=== PATIENT | male | born 1955 | race Caucasian/White ===

== ENCOUNTER → 2016-10-25 | Outpatient (REF) | payer BC ==
[2016-10-27 00:07] LABS: Lyme Disease IgG/IgM Antibodie <0.91 ISR (0.00-0.90); Lyme Disease IgM Ab Quantitati <0.80 index (0.00-0.79)
== END ==
LOC: M LAB REF 12:18
PROVIDERS: ATTEND Nurse Practitioner Family
DX: Z11.59 Encounter for screening for other viral diseases (principal)

== ENCOUNTER → 2017-05-01 | Outpatient (CLI) | payer BC ==
--- NOTE | 2017-05-02 04:41 | REP ---
Clinical: Wheezing . Comparison: None . Technique: PA and lateral. Findings: The mediastinum and cardiac silhouette are normal. Minimal linear atelectasis based on lateral radiograph cannot be excluded. The lung leon are otherwise clear and without acute consolidation, effusion, or pneumothorax. The skeletal structures are intact and normal. Impression: 1. Minimal linear atelectasis cannot be excluded. No focal consolidation. Signed by Mustapha Smith MD 05/02/2017 04:33 A
== END ==
LOC: M WUC 11:53
PROVIDERS: ATTEND Nurse Practitioner Family
DX: R06.2 Wheezing (principal)

== ENCOUNTER → 2019-05-02 | Outpatient (CLI) | payer BC ==
--- NOTE | 2019-05-02 16:38 | REP ---
MRI RIGHT SHOULDER: TECHNIQUE: Axial T2 fat sat, coronal oblique T1, T2 fat sat, post arthrogram axial T1 fat sat, proton density, coronal oblique T1 fat sat, T2 sat, sagittal oblique T2 fat sat, ABER T1 fat sat. There is ill-defined high signal involving the supraspinatus tendon, infraspinatus tendon and subscapularis tendon compatible with moderate degree of tendinopathy/tendinitis. I cannot exclude some degree of fraying of these tendons. There are moderate hypertrophic degenerative changes of the acromioclavicular joint with mild subchondral marrow edema. The acromion is type 1. The biceps tendon is within the bicipital groove. A large amount of surrounding fluid consistent with tenosynovitis. There is no Hill-Sachs deformity. The deltoid muscle demonstrates no abnormal signal. There is a complex tear of the biceps labral complex. The entire labrum is torn. There is subchondral marrow edema and cystic change throughout the glenoid. Similar findings are seen in a flattened medial humeral head. In addition, there is geographic serpiginous low and high signal in this region of the medial humeral head consistent with avascular necrosis. Large humeral head spur is seen medially and inferiorly. There is a moderate joint effusion. There is severe chondromalacia at the glenohumeral joint. IMPRESSION: Moderate tendinopathy supraspinatus, infraspinatus and subscapularis tendons with suspected fraying of these tendons. Moderate hypertrophic degenerative changes acromioclavicular joint. Significant biceps tenosynovitis. Complex tear of the biceps labral complex with diffuse tear of the entire labrum. 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 Large spur of the humeral head. Moderate joint effusion. Electronically Signed by Sukhwinder Squires MD 05/02/2019 04:58 P
== END ==
LOC: M RAD 12:47
PROVIDERS: ATTEND Orthopaedic Surgery Sports Medicine
DX: M19.011 Primary osteoarthritis, right shoulder (principal)

== ENCOUNTER → 2019-05-27 | Outpatient (CLI) | payer BC ==
[~2019-05-27] MED LIST: AMLO25TA PO; CO Q10CA PO; HYDR12.55 PO
--- NOTE | 2019-05-27 14:55 | REP ---
Clinical: Preoperative assessment. . Comparison: 05/01/2017 . Technique: PA and lateral. Findings: The mediastinum and cardiac silhouette are normal. The lung leon are clear and without acute consolidation, effusion, or pneumothorax. The skeletal structures are intact and normal. Impression: 1. No acute cardiopulmonary process. Electronically Signed by Mustapha Smith MD 05/27/2019 02:47 P
[2019-05-27 14:59] LABS: HEMATOCRIT 47.4 % (42.0-52.0); HEMOGLOBIN 15.6 g/dl (13.5-17.5); MEAN CORPUSCULAR HEMOGLOBIN 29.2 pg (27.0-33.0); MEAN CORPUSCULAR HGB CONC 32.9 g/dl (32.0-36.5); MEAN CORPUSCULAR VOLUME 88.8 fl (80.0-96.0); PLATELET COUNT, AUTOMATED 293 10^3/uL (150-450); RED BLOOD COUNT 5.34 10^6/uL (4.30-6.10); WHITE BLOOD COUNT 7.4 10^3/uL (4.0-10.0)
[2019-05-27 15:11] LABS: INR 1.03; PROTHROMBIN TIME 13.2 SECONDS (11.8-14.0)
[2019-05-27 15:30] LABS: ALT/SGPT 46 U/L (12-78); BILIRUBIN,TOTAL 0.7 MG/DL (0.2-1.0); BLOOD UREA NITROGEN 16 MG/DL (7-18); CALCIUM LEVEL 8.9 MG/DL (8.8-10.2); CARBON DIOXIDE LEVEL 31 MEQ/L (21-32); CHLORIDE LEVEL 101 MEQ/L (98-107); CREATININE FOR GFR 0.95 MG/DL (0.70-1.30); GLOMERULAR FILTRATION RATE > 60.0 (>49); GLUCOSE, FASTING 88 MG/DL (70-100); POTASSIUM SERUM 3.9 MEQ/L (3.5-5.1); SODIUM LEVEL 138 MEQ/L (136-145); TOTAL PROTEIN 7.5 GM/DL (6.4-8.2)
[2019-05-27 15:42] LABS: ERYTHROCYTE SEDIMENTATION RATE 2 mm/hr (0-20)
--- NOTE | 2019-05-28 07:12 | ECGEPIP ---
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
== END ==
LOC: M LAB 13:54
PROVIDERS: ATTEND Orthopaedic Surgery Sports Medicine
DX: Z01.818 Encounter for other preprocedural examination (principal); M19.011 Primary osteoarthritis, right shoulder; I45.10 Unspecified right bundle-branch block

== ENCOUNTER 2019-05-31 05:34 | Inpatient (IN) | payer BC ==
[~2019-05-31] VITALS: Ht 180.3 cm; Wt 79.4 kg
[~2019-05-31 05:34] MED LIST changes: -CO Q10CA PO
[2019-05-31] MEDS ORDERED: LR 1,000 ML IV ONE (06:00)
[2019-05-31] MEDS ORDERED: ceFAZolin SOD 2 GM in IV 1 EA IV ONE (06:00)
[2019-05-31] MEDS ORDERED: CO Q10CA PO (06:16)
[2019-05-31] MEDS ORDERED: BUPIVACAINE HCL 0.25% 30 ML VIAL As Ordered ONE (06:44)
[2019-05-31] MEDS ORDERED: fentaNYL 100 MCG/2 ML INJECTION (J3010) As Ordered ONE ×2 (06:49→07:14)
[2019-05-31] MEDS ORDERED: MIDAZOLAM INJ 2 MG/2 ML VIAL (J2250) As Ordered ONE ×2 (06:49→07:15)
[2019-05-31] MEDS ORDERED: EPINEPHrine INJ 1 MG/ML 1ML VIAL As Ordered ONE (06:57)
[2019-05-31] MEDS ORDERED: ROCURONIUM BROMIDE 50 MG/5 ML VIAL As Ordered ONE (07:14)
[2019-05-31] MEDS ORDERED: KETOROLAC 60 MG/2 ML VIAL (J1885) As Ordered ONE (07:14)
[2019-05-31] MEDS ORDERED: ACETAMINOPHEN 1000MG 100ML IV BTL (OFIRMEV) (J0131 PER 10MG) As Ordered ONE (07:14)
[2019-05-31] MEDS ORDERED: dexameTHASONE 4 MG/ML 1ML VIAL (J1100) As Ordered ONE (07:14)
[2019-05-31] MEDS ORDERED: PROPOFOL 200 MG/20 ML VIAL As Ordered ONE (07:14)
[2019-05-31] MEDS ORDERED: LIDOCAINE 2% INJ 100 MG/5 ML SDV (FOR ANES.) As Ordered ONE (07:14)
[2019-05-31] MEDS ORDERED: ONDANSETRON 4MG/2ML VIAL (J2405) As Ordered ONE (07:14)
[2019-05-31] MEDS ORDERED: SUGAMMADEX SODIUM 500 MG/5 ML VIAL (BRIDION) As Ordered ONE (07:14)
[2019-05-31] MEDS ORDERED: TRANEXAMIC ACID 100 MG/ML 10ML VIAL As Ordered ONE (08:07)
[2019-05-31] MEDS ORDERED: ceFAZolin 1GM INJ (J0690 PER 500MG) As Ordered ONE (08:19)
[2019-05-31] MEDS ORDERED: BUPIVACAINE LIPOSOME/PF 1.3% 20ML VIAL (13.3MG/ML)(EXPAREL)(C9290 PER1MG) As Ordered ONE (09:44)
[2019-05-31] MEDS ORDERED: BUPIVACAINE HCL 0.25% 10 ML VIAL As Ordered ONE (09:44)
[2019-05-31] MEDS ORDERED: LR 1,000 ML IV SCH (11:00)
[2019-05-31] MEDS ORDERED: ONDANSETRON 4MG/2ML VIAL (J2405) IV PRN ×2 (11:00→11:30)
[2019-05-31] MEDS ORDERED: HYDROMORPHONE HCL 0.5 MG/ 0.5 ML SYRINGE (J1170 PER 1) IV PRN (11:00)
[2019-05-31] MEDS ORDERED: fentaNYL 100 MCG/2 ML INJECTION (J3010) IV PRN (11:00)
[2019-05-31] MEDS ORDERED: oxyCODONE 5MG TAB PO PRN (11:00)
[2019-05-31] MEDS ORDERED: ONDANSETRON 4 MG TAB (S0181) PO PRN (11:30)
[2019-05-31] MEDS: LR 1,000 ML IV SCH ×2 (11:30→19:30)
[2019-05-31] MEDS ORDERED: ACETAMINOPHEN TAB 650MG DOSE (2X325MG) PO PRN (11:30)
[2019-05-31] MEDS ORDERED: MORPHINE 2 MG/ML 1ML VIAL (J2270) IV PRN (11:30)
[2019-05-31 11:43] VITALS: BP 112/77
--- NOTE | 2019-05-31 12:25 | RO ---
DATE OF PROCEDURE: 05/31/2019 PREOPERATIVE DIAGNOSIS: Right shoulder osteoarthritis. POSTOPERATIVE DIAGNOSIS: Right shoulder osteoarthritis. PROCEDURE: Right total shoulder arthroplasty. SURGEON: Darrell Hernandez MD BONE TENDER: FERNANDA Allan ANESTHESIA: General anesthetic plus preoperative block. OPERATIVE PREAMBLE: This 64-year-old man was having a symptomatic right shoulder osteoarthritis. His primarily complaint was pain and secondarily stiffness. His MRI showed advanced osteoarthritis with intact rotator cuff so we plan for right total shoulder arthroplasty. We talked about pros, cons, risks, benefits of nonoperative versus operative management of this problem. I reiterated the risks in preoperative holding. Right upper extremity was marked and preoperative block was performed. The patient had no further questions. DESCRIPTION OF PROCEDURE: The patient was brought to operating theater. 2 grams IV Ancef and 2 grams IV tranexamic acid was administered. He was placed supine on beach chair with the spider arm perez to his right side. All bony prominences were padded. Leg positioner was used with a safety belt. SCDs were used on the legs. General anesthesia was induced. Bolsters were placed on both sides. Well arm perez was used on the left side. The patient was sat up at a 45 degrees angle. Face mask was used and appropriately positioned and eyes were appropriately padded. Right upper extremities prepped and draped in usual sterile fashion allowing plenty of time for the prep solution to dry. A preoperative time-out was performed confirming the site, the patient and the surgery. I began by making a standard delta pectoral incision centered just lateral to the coracoid. I carried this dissection down through skin and subcutaneous tissue, achieving meticulous hemostasis. Cephalic vein was identified and protected and retracted laterally. Conjoined tendon was identified. This was incised along the lateral border, extending lateral to the muscular fibers. Murillo shoulder retractor was then used. Inferior circumflex humeral vessels were identified and ligated with interrupted 2-0 Vicryl sutures. These were divided. Biceps was identified. Biceps groove was incised. Biceps tenodesis was then performed. Small amount of the upper border of the pectoralis major was then incised and released. Subscapularis peel type tenotomy was then performed. #2 FiberWire sutures were then placed. Incision was carried through the rotator interval. Subscapularis was placed on attention and the capsule elevated off the inferior humeral neck. Humerus was externally rotated and glenohumeral joint dislocated. Labrum was removed circumferentially. Supraspinatus, as well as the posterior rotator cuff muscles appeared intact. There is evidence of humeral osteoarthritis with flattening of the humeral head. Sharp canal entry devices were then used to identify the humeral canal. A total shoulder arthroplasty system was then used. Guide was placed down the intramedullary canal. Cut guide was placed at 30 degrees external rotation. Pins were placed. Cut was began with the intramedullary guide in place and then the guide removed and cut finished. Inferior osteophytes were removed. Rotator cuff appeared intact after cutting after making the humeral head cut. Cut guide protector was then used and a combination of ring retractors and Kaitlynn retractors were then used to identify the glenoid. Glenoid was cleared of any soft-tissue. Guide pin was placed just anterior and inferior to the exact center of the glenoid. Standard sized reamer was used after measuring to ensure that this was proper size. This was reamed down to bleeding surface of bone and circumferentially reamed. The center plate was then drilled for a standard glenoid baseplate with medium sized peg. The guide pine was then removed and standard plate tapped down to bone without gap. The superior and inferior screws were then drilled. The superior screw was aiming for the base of the coracoid, inferior for the scapular body. I then inserted 35 mm standard size screws superiorly and inferiorly. These both had good bite. This was thoroughly irrigated, followed by application and impaction of the glenoid standard polyethylene liner. Liner was appropriately seated, as was the glenoid baseplate. I then turned my attention to the humeral side . This was sequentially broached up to a size 17 mm thin stem. We then inserted a 17 mm thin stem with medium for the humeral body. We trialed with a size 50, as well as size 48 humeral head based on the current humeral head, as well as the trialing. The 48 mm size humeral head with 2 mm eccentric adapter was the final components. These were assembled on the back table. Kong taper was then cleaned and then the humeral head assembly impacted into place. The glenohumeral joint was reduced. This had good 50% translation with normal external rotation with the arm at the side of body, as well as internal rotation to at least parallel with the floor with the arm at 90 degrees abduction. He is able to get his hand to the back of the head as well. The wound was thoroughly irrigated. Subscapularis tenotomy was then fixed over bone holes, as well as to the cuff tissue and over sutured with more #2 FiberWire suture. The rotator interval was closed in the same manner. The wound was thoroughly irrigated once again. Deltopectoral interval was closed with interrupted 1-0 Vicryl sutures and subcutaneous tissue with interrupted 2-0 Vicryl sutures. Skin was closed with 3-0 Monocryl in a running fashion. Skin was cleaned with wet and dry dressing. 20 mL of Exparel mixed with 20 mL 0.25% percent Marcaine and 20 mL of normal saline was then instilled around the incision site. Skin was cleaned with wet and dry dressing, followed by application of Steri-Strips cut in half, Adaptic, 4 x 8 gauze, ABD dressing and cloth tape. The patient's upper extremity was then placed into a sling. The patient was woken up from general anesthetic, laid flat, transferred off the operating room table and taken to the postanesthetic care unit in stable condition. All sponge, needle, and instrument counts were correct. No complications. Estimated blood loss 250 mL. PLAN: The patient will be discharged home today according to day surgery criteria as long as they are comfortable, but he may have to stay 1 to 2 days in hospital for pain control. Followup in the office in 2 weeks' time. I communicated this plan to Sukhwinder's as well.
[2019-05-31 13:01] VITALS: BP 112/77
[2019-05-31] MEDS ORDERED: LIDOCAINE 1% MDV 20ML VIAL ONE (13:23)
[2019-05-31 13:59] VITALS: BP 101/65
[2019-05-31 15:10] VITALS: BP 106/68
[2019-05-31] MEDS: PERCOCET 5MG/325MG TAB PO PRN (20:32)
[2019-05-31 22:00] VITALS: BP 127/78
[2019-06-01] MEDS: PERCOCET 5MG/325MG TAB PO PRN (01:49)
[2019-06-01 02:00] VITALS: BP 116/74
[2019-06-01 06:00] VITALS: BP 125/86
[2019-06-01] MEDS ORDERED: MORPHINE 15 MG SA TAB PO ONE (06:45)
[2019-06-01] MEDS ORDERED: MORPHINE 15 MG SA TAB PO SCH ×2 (06:45→09:00)
== END 2019-06-01 11:45 | disposition home or self-care (01) | DRG 322 ==
LOC: M OR 05:34 → M MS5PR 11:35
PROVIDERS: ADMIT Orthopaedic Surgery Sports Medicine; ATTEND Orthopaedic Surgery Sports Medicine
PROC: 0RRJ0JZ Replacement of Right Shoulder Joint with Synthetic Substitute, Open Approach (ICD-10-PCS; principal; 2019-05-31 07:30)
DX: M19.011 Primary osteoarthritis, right shoulder (principal)

== ENCOUNTER → 2022-04-18 | Outpatient (REF) | payer BC ==
[~2022-04-18] MED LIST changes: +CO Q10CA PO
== END ==
LOC: M LAB REF 16:27
PROVIDERS: ATTEND Family Medicine
DX: S70.361A Insect bite (nonvenomous), right thigh, initial encounter (principal); Z11.59 Encounter for screening for other viral diseases; W18.30XA Fall on same level, unspecified, initial encounter; Y92.009 Unspecified place in unspecified non-institutional (private) residence as the place of occurrence of the external cause

== ENCOUNTER → 2024-03-12 | Outpatient (CLI) | payer MEDICARE | LOC: M SLEEP 20:00 | PROVIDERS: ATTEND Physician Assistant | DX: R40.0 Somnolence (principal) ==

== ENCOUNTER → 2024-06-05 | Outpatient (CLI) | payer MEDICARE | LOC: M SLEEP 20:00 | PROVIDERS: ATTEND Physician Assistant | DX: G47.33 Obstructive sleep apnea (adult) (pediatric) (principal) ==

== ENCOUNTER 2024-09-04 07:52 | Day surgery (SDC) | payer MEDICARE ==
[~2024-09-04] VITALS: Ht 180.3 cm; Wt 79.2 kg
[~2024-09-04 07:52] MED LIST changes: +AMLO1TAB24 PO; +ATOR40TA75 PO; +MELO15TA28 PO; +PARO20TA3 PO
[2024-09-04] MEDS: ALBUTEROL SULFATE 2.5MG/0.5ML INH CONCENTRATE NEB SOLN NEB STA (08:15)
[2024-09-04] MEDS ORDERED: LIDOCAINE 2% 100MG/5ML SDV (FOR ANES.) As Ordered ONE (09:07)
[2024-09-04] MEDS ORDERED: propofoL 200 MG/20 ML VIAL As Ordered ONE (09:07)
[2024-09-04 09:59] VITALS: TEMP 97.3
[2024-09-04 10:20] VITALS: BP 127/80; O2SAT 94
== END 2024-09-04 10:26 | disposition home or self-care (01) ==
LOC: M OPP 07:52
PROVIDERS: ATTEND Internal Medicine Gastroenterology
DX: Z12.11 Encounter for screening for malignant neoplasm of colon (principal); G47.30 Sleep apnea, unspecified; Z79.899 Other long term (current) drug therapy

== ENCOUNTER → 2025-05-12 | Outpatient (CLI) | payer MEDICARE | LOC: M WUC 08:51 | DX: R06.02 Shortness of breath (principal); R06.2 Wheezing ==